=== PATIENT | female | born 1990 | race African-American/Black ===

== ENCOUNTER → 2016-11-14 | Outpatient (REF) | payer OTHER | LOC: M SFHCLERA 16:06 | PROVIDERS: ATTEND Nurse Practitioner Family | DX: R39.9 Unspecified symptoms and signs involving the genitourinary system (principal) ==

== ENCOUNTER → 2017-05-31 | Outpatient (CLI) | payer OTHER ==
--- NOTE | 2017-05-31 16:32 | REP ---
DIAGNOSTIC MAMMOGRAM RIGHT BREAST WITH RIGHT BREAST ULTRASOUND: Diagnostic mammogram right breast is performed in the MLO and CC projections as well as a right ML view. Patient reports a history of a palpable abnormality in the upper outer quadrant of the right breast and that area is marked on the skin with a triangular marker. The breast parenchyma is very dense. At the site of the reported palpable abnormality there is a suggestion of a rounded 2 cm nodule but the borders are not well seen due to obscuration by very dense fibroglandular tissue. I see no clustered microcalcifications in the right breast. Real-time sonographic evaluation of the right breast is performed at the site of the reported palpable abnormality and compared to the prior ultrasound at [facility] 04/04/2017. Solid nodule at 10 o'clock is again noted measuring 1.7 x 1.5 x 1.6 cm. This is essentially unchanged when compared to prior ultrasound. This may represent a fibroadenoma but continued followup is recommended. IMPRESSION: ACR 3 probably benign. By mammography, at the site of the reported palpable abnormality is a vague nodule, but the borders are not well seen due to surrounding dense fibroglandular tissue. By ultrasound there is a round hypoechoic nodule with a maximum diameter of 1.7 cm with internal blood flow. This is unchanged since the prior ultrasound at [facility] 04/04/2017. This may represent a fibroadenoma. Recommend followup ultrasound in 6 months to ensure stability. If desired this could be biopsied with ultrasound guidance. This mammogram was interpreted with the aid of an FDA-approved computer-aided detection system. The patient states she had a clinical breast exam in 03/2017. The patient letter being requested is M3. Signed by Vinayak Subramanian MD 06/01/2017 09:21 A
== END ==
LOC: M RAD 14:46
PROVIDERS: ATTEND Physician Assistant Medical
DX: N63 Unspecified lump in breast (principal); N60.31 Fibrosclerosis of right breast
CPT/HCPCS: 76642; G0206

== ENCOUNTER 2017-11-17 17:31 | Emergency (ER) | payer OTHER ==
[2017-11-17 18:33] LABS: BASO % 0.5 % (0.0-1.0); EOS % 0.5 % (0.0-3.0); HEMATOCRIT 40.7 % (36.0-47.0); HEMOGLOBIN 13.7 g/dl (12.0-16.0); IMMATURE GRANULOCYTE % 0.2 % (0-3.0); LYMPH # 2.6 10^3/uL (1.5-6.5); LYMPH % 48.1 % (24.0-44.0); MEAN CORPUSCULAR HEMOGLOBIN 29.2 pg (27.0-33.0); MEAN CORPUSCULAR HGB CONC 33.7 g/dl (32.0-36.5); MEAN CORPUSCULAR VOLUME 86.8 fl (80.0-96.0); MONO # 0.6 10^3/uL (0.0-0.8); NEUTROPHILS # 2.2 10^3/uL (1.8-7.7); NEUTROPHILS % 39.7 % (36.0-66.0); PLATELET COUNT, AUTOMATED 243 10^3/uL (150-450); RED BLOOD COUNT 4.69 10^6/uL (4.00-5.40); RED CELL DISTRIBUTION WIDTH 13.1 % (11.5-14.5); WHITE BLOOD COUNT 5.5 10^3/uL (4.0-10.0)
[2017-11-17 18:38] LABS: KETONE, URINE AUTO RFX TRACE mg/dL (NEGATIVE); LEUKOCYTE ESTERASE UR AUTO RFX NEGATIVE (NEGATIVE); MUCUS, URINE RFX SMALL (NEGATIVE); NITRITE, URINE AUTO RFX NEGATIVE (NEGATIVE); RBC, URINE AUTO RFX 2 /HPF (0-3); SPECIFIC GRAVITY UR AUTO RFX 1.006 (1.002-1.035); SQUAM EPITHELIAL CELL UR AURFX 0 /HPF (0-6); WBC, URINE AUTO RFX 1 /HPF (0-3)
[2017-11-17 19:13] LABS: ANION GAP 6 MEQ/L (8-16); BLOOD UREA NITROGEN 7 MG/DL (7-18); CALCIUM LEVEL 9.2 MG/DL (8.5-10.1); CARBON DIOXIDE LEVEL 27 MEQ/L (21-32); CHLORIDE LEVEL 104 MEQ/L (98-107); CREATININE FOR GFR 0.86 MG/DL (0.55-1.30); GLOMERULAR FILTRATION RATE > 60.0 (>60); GLUCOSE, FASTING 92 MG/DL (70-100); HCG, SERUM QUANTITATIVE 381 MIU/ML; POTASSIUM SERUM 3.5 MEQ/L (3.5-5.1); SODIUM LEVEL 137 MEQ/L (136-145)
[2017-11-17 19:49] LABS: AB SCREEN (INDIRECT COOMBS)VIS 1 1
[2017-11-17] MEDS: RHOGAM 300 MCG (1500 IU) INJ (J2790) IM (20:11)
== END 2017-11-17 20:32 | disposition home or self-care (01) ==
LOC: M ED 17:31
PROVIDERS: Pediatrics
DX: O20.0 Threatened abortion (principal); O34.80 Maternal care for other abnormalities of pelvic organs, unspecified trimester; O26.851 Spotting complicating pregnancy, first trimester; O99.89 Other specified diseases and conditions complicating pregnancy, childbirth and the puerperium; R10.2 Pelvic and perineal pain; J30.81 Allergic rhinitis due to animal (cat) (dog) hair and dander; Z3A.01 Less than 8 weeks gestation of pregnancy; Z79.899 Other long term (current) drug therapy; Z91.89 Other specified personal risk factors, not elsewhere classified
CPT/HCPCS: 76801